=== PATIENT | female | born 1975 ===

== ENCOUNTER 2017-02-28 10:34 | Observation (INO) | payer OTHER ==
--- NOTE | 2017-02-28 11:48 | ED PDOC ---
Arrival/HPI <Imani Niño - Last Filed: 02/28/17 14:06> <CarinaJasper - Last Filed: 02/28/17 14:10> - General Chief Complaint: Back Pain Time Seen by Provider: 02/28/17 11:20 - History of Present Illness Narrative History of Present Illness (Text): 02/28/17 11:38 41 y/o F w/ PMHx of HTN, asthma, depression and lumbar herniated disk, presents to the ED c/o numbness and tingling in L hand and arm. Pt has had numbness in digits 1-3 x3mons but L arm weakness, numbness, and tingling since Sunday. Pt also reports decreased metal miner strength. Pt has no Hx of cervical injury or pain in cervical spine. Pt states numbness/tingling is positional and resolves w/ movement of arm. Pt denies pain in neck and arm, NAVARRO, dizziness, lightheadedness , weakness in R arm or LE. Pt admits to smoking crack cocaine w/ last use last week. Pt's last EtOH use was 1-2yrs ago. (Imani Niño) Past Medical History - Provider Review Nursing Documentation Reviewed: Yes - Cardiac Hx Cardiac Disorders: Yes Hx Hypertension: Yes - Pulmonary Hx Respiratory Disorders: Yes Hx Asthma: Yes - Neurological Hx Neurological Disorder: No - HEENT Hx HEENT Disorder: No - Renal Hx Renal Disorder: No - Endocrine/Metabolic Hx Endocrine Disorders: No - Hematological/Oncological Hx Blood Disorders: No - Integumentary Hx Dermatological Disorder: No - Musculoskeletal/Rheumatological Hx Musculoskeletal Disorders: Yes Hx Back Pain: Yes Hx Herniated Disk: Yes - Gastrointestinal Hx Gastrointestinal Disorders: No - Genitourinary/Gynecological Hx Genitourinary Disorders: No - Psychiatric Hx Psychophysiologic Disorder: Yes Hx Depression: Yes Hx Substance Use: No - Surgical History Hx Cholecystectomy: Yes Hx Orthopedic Surgery: Yes <Imani Niño - Last Filed: 02/28/17 14:06> Family/Social History - Physician Review Nursing Documentation Reviewed: Yes Family/Social History: No Known Family HX Smoking Status: Heavy Smoker > 10 Cigarettes Daily Hx Alcohol Use: No Hx Substance Use: No <Imani Niño - Last Filed: 02/28/17 14:06> Allergies/Home Meds <Imani Niño - Last Filed: 02/28/17 14:06> <Jasper Lim - Last Filed: 02/28/17 14:10> Allergies/Adverse Reactions: Allergies No Known Allergies Allergy (Verified 02/28/17 10:36) Home Medications: Home Meds Medication Instructions Recorded Confirmed No Known Home Med 02/28/17 02/28/17 Review of Systems - Physician Review All systems were reviewed & negative as marked: Yes - Review of Systems Constitutional: absent: Fevers Eyes: absent: Vision Changes <Imani Niño - Last Filed: 02/28/17 14:06> Physical Exam Vital Signs Reviewed: Yes Temperature: Afebrile Blood Pressure: Hypertensive Pulse: Regular Respiratory Rate: Normal Appearance: Positive for: Well-Appearing, Comfortable Pain Distress: Mild Mental Status: Positive for: Alert and Oriented X 3 - Systems Exam Head: Present: Atraumatic, Normocephalic Mouth: Present: Moist Mucous Membranes Neck: Present: Normal Range of Motion Respiratory/Chest: Present: Clear to Auscultation, Good Air Exchange. No: Respiratory Distress, Accessory Muscle Use Cardiovascular: Present: Regular Rate and Rhythm, Normal S1, S2. No: Murmurs Upper Extremity: Present: Other (see narrative exam). No: Cyanosis, Edema Lower Extremity: No: Edema Neurological: Present: GCS=15, Speech Normal Skin: Present: Warm, Dry, Normal Color, Other (multiple tattoos) Psychiatric: Present: Alert, Oriented x 3 <Imani Niño - Last Filed: 02/28/17 14:06> <Jasper Lim - Last Filed: 02/28/17 14:10> - Physical Exam Narrative Physical Exam (Text): 02/28/17 11:50 L metal miner strength 4/5; R metal miner strength 5/5 5/5 BL UE Flexon/extension Unable to elicit DTRs Tingling reproduced w/ neck extension and compression (Imani Niño) Vital Signs Temp Pulse Resp BP Pulse Ox 02/28/17 13:49 79 18 145/89 97 02/28/17 12:02 86 18 148/96 H 98 02/28/17 10:36 98.6 F 99 H 16 150/101 H 97 Medical Decision Making - EKG Interpretation Interpreted by ED Physician: Yes Type: 12 lead EKG <Imani Niño - Last Filed: 02/28/17 14:06> <Jasper Lim - Last Filed: 02/28/17 14:10> ED Course and Treatment: 02/28/17 11:52 41 y/o F w/ LUE numbness, tingling, weakness - labs - head CT - EKG - CXR - reassess and dispo (Imani Niño) A 41 year old female with left upper ext numbness and tingling for nearly 2 months but noting LUE weakness x 2 days. In agreement with resident note, which includes further HPI details. Patient was seen and evaluated with resident , came up with plan and treatment together. EKG shows NSR at 72 BPM with normal intervals, normal axis, poor R wave progression, no ST/T changes. Interpreted by me. 02/28/17 14:00 Patient with noted history; LUE with weaker metal miner. Symptoms x 2 days so is not a tpa candidate. She has risk factors of cocaine use, Hypertension, smoker, and apparent hyperlipidemia. Will obs and workup further for possible central / stroke etiology. (Jasper Lim) - Lab Interpretations Lab Results: 02/28/17 12:00 02/28/17 12:00 Lab Results 02/28/17 12:50: Blood Type Confirm A POSITIVE 02/28/17 12:00: Urine Opiates Screen Negative, Urine Methadone Screen Negative, Ur Barbiturates Screen Negative, Ur Phencyclidine Scrn Negative, Ur Amphetamines Screen Negative, U Benzodiazepines Scrn Negative, U Oth Cocaine Metabols Positive H, U Cannabinoids Screen Negative 02/28/17 12:00: Blood Type A POSITIVE, Antibody Screen Negative, BBK History Checked No verified bt 02/28/17 12:00: Sodium 139, Potassium 3.7, Chloride 102, Carbon Dioxide 29, Anion Gap 12, BUN 19, Creatinine 1.0, Est GFR ( Amer) > 60, Est GFR (Non- Af Amer) > 60, Random Glucose 90, Calcium 9.5, Magnesium 2.0, Total Bilirubin 0.4, AST 26, ALT 28, Alkaline Phosphatase 64, Lactate Dehydrogenase 300 L, Total Creatine Kinase 49, Troponin I < 0.01, Total Protein 7.7, Albumin 4.2, Globulin 3.5, Albumin/Globulin Ratio 1.2, Triglycerides 72, Cholesterol 217 H, LDL Cholesterol Direct 149 H, HDL Cholesterol 55, Lipase 46 02/28/17 12:00: PT 10.9, INR 1.01, APTT 25.7 02/28/17 12:00: WBC 8.6, RBC 4.50, Hgb 14.4, Hct 41.8, MCV 92.9, MCH 32.0, MCHC 34.4, RDW 13.3, Plt Count 350, MPV 9.2, Gran % 64.7, Lymph % (Auto) 24.7, Mclean % (Auto) 7.7 H, Eos % (Auto) 2.4, Baso % (Auto) 0.5, Gran # 5.57, Lymph # 2.1, Mclean # 0.7 H, Eos # 0.2, Baso # 0.04 - RAD Interpretation Radiology Orders: 02/28/17 11:43 HEAD W/O CONTRAST [CT] Stat CHEST TWO VIEWS (PA/LAT) [RAD] Stat - EKG Interpretation EKG Interpretation (Text): 02/28/17 12:03 NSR, rate 72, no ST changes (Imani Niño) - Medication Orders Current Medication Orders: Discontinued Medications Aspirin (Aspirin Chewable) 324 mg PO STAT STA Stop: 02/28/17 13:56 NIHSS Scale ([place]) Time Performed: 11:20 - How Severe is the Stoke Baseline Level of Consciousness: 0=Alert LOC to Questions: 0=Both comments correct LOC to commands: 0=Obeys both correctly Best Gaze: 0=Normal Visual: 0=No visual loss Facial: 0=Normal Motor Arm - Left: 0=No drift Motor Arm - Right: 0=No drift Motor Leg - Left: 0=No drift Motor Leg - Right: 0=No drift Limb Ataxia: 0=Absent Sensory: 0=Normal Best Language: 0=No aphasia Dysarthia: 0=Normal articulation Extinction & Inattention (Neglect): 0=Normal, no object Score: 0 Risk Level: No Stroke Risk <Jasper Lim - Last Filed: 02/28/17 14:10> <Imani Niño - Last Filed: 02/28/17 14:06> - PA / DAMPENER / Resident Statement / has reviewed & agrees with the documentation as recorded. / has examined the patient and agrees with the treatment plan. - Scribe Statement The provider has reviewed the documentation as recorded by the Scribe <Jasper Lim - Last Filed: 02/28/17 14:10> - Scribe Statement Sheela Hernandez Provider Scribe Attestation: All medical record entries made by the Scribe were at my direction and personally dictated by me. I have reviewed the chart and agree that the record accurately reflects my personal performance of the history, physical exam, medical decision making, and the department course for this patient. I have also personally directed, reviewed, and agree with the discharge instructions and disposition. (Jasper Lim) Disposition/Present on Arrival - Present on Arrival Any Indicators Present on Arrival: No History of DVT/PE: No History of Uncontrolled Diabetes: No Urinary Catheter: No History of Decub. Ulcer: No History Surgical Site Infection Following: None - Disposition Have Diagnosis and Disposition been Completed?: Yes Patient Plan: Observation <Imani Niño - Last Filed: 02/28/17 14:06> - Present on Arrival Any Indicators Present on Arrival: No - Disposition Have Diagnosis and Disposition been Completed?: Yes Disposition Time: 13:50 Patient Plan: Observation <Jasper Lim - Last Filed: 02/28/17 14:10> - Disposition Diagnosis: Left arm weakness Disposition: HOSPITALIZED Patient Problems: Current Active Problems Problem Status Onset Left arm weakness Acute Condition: FAIR Referrals: Hai Astudillo DO [Primary Care Provider] - Follow up with primary
[2017-02-28 12:21] LABS: ADD MANUAL DIFF? NO
[2017-02-28 12:32] LABS: BASO # 0.04 K/mm3 (0.0-2.0); BASO % 0.5 % (0.0-3.0); EOS # 0.2 (0.0-0.7); EOS % 2.4 % (1.5-5.0); GRAN # 5.57 (1.4-6.5); GRAN % 64.7 % (50.0-68.0); HEMATOCRIT 41.8 % (36.0-48.0); LYMPH # 2.1 (1.2-3.4); LYMPH % 24.7 % (22.0-35.0); MEAN CELL VOLUME 92.9 fL (80.0-105.0); MEAN CORPUSCULAR HGB CONC 34.4 g/dl (31.0-37.0); MEAN PLATELET VOLUME 9.2 fl (7.0-11.0); MONO # 0.7 (0.1-0.6); MONO % 7.7 % (1.0-6.0); PLATELET COUNT 350 10^3/uL (120.0-450.0); RED CELL DISTRIBUTION WIDTH 13.3 % (11.5-14.5); WHITE BLOOD COUNT 8.6 10^3/ul (4.5-11.0)
[2017-02-28 12:40] LABS: ALB/GLOB RATIO 1.2 (1.1-1.8); ALKALINE PHOSPHATASE 64 U/L (38-133); ALT/SGPT 28 U/L (7-56); AST/SGOT 26 U/L (15-39); BILIRUBIN,TOTAL 0.4 mg/dL (0.2-1.3); BLOOD UREA NITROGEN 19 mg/dL (7-21); CALCIUM 9.5 mg/dL (8.4-10.5); CARBON DIOXIDE 29 mmol/L (21-33); CHLORIDE 102 mmol/L (98-107); CHOLESTEROL 217 mg/dL (130-200); GFR AFRICAN-AMERICAN > 60; GLUCOSE,RANDOM 90 mg/dL (70-110); LIPASE 46 U/L (23-300); POTASSIUM 3.7 mmol/L (3.6-5.0); SODIUM 139 mmol/L (132-148); TOTAL PROTEIN 7.7 g/dL (5.8-8.3)
[2017-02-28 12:42] LABS: INR 1.01 (0.93-1.08); PARTIAL THROMBOPLASTIN TIME 25.7 Seconds (23.7-30.8)
[2017-02-28 12:55] LABS: TROPONIN I < 0.01 ng/mL
--- NOTE | 2017-02-28 13:42 | CT ---
PROCEDURE: CT HEAD WITHOUT CONTRAST. HISTORY: L arm weakness and parasthesias COMPARISON: None available. TECHNIQUE: Axial computed tomography images were obtained through the head/brain without intravenous contrast. There was a small amount of motion artifact This CT exam was performed using one or more of the following dose reduction techniques: Automated exposure control, adjustment of the mA and/or kV according to patient size, and/or use of iterative reconstruction technique. FINDINGS: HEMORRHAGE: No intracranial hemorrhage. BRAIN: No mass effect or edema. No atrophy or chronic microvascular ischemic changes. VENTRICLES: Unremarkable. No hydrocephalus. CALVARIUM: Unremarkable. PARANASAL SINUSES: Unremarkable as visualized. No significant inflammatory changes. MASTOID AIR CELLS: Unremarkable as visualized. No inflammatory changes. OTHER FINDINGS: None. IMPRESSION: No acute findings
--- NOTE | 2017-02-28 14:28 | RAD ---
HISTORY: L arm tingling and weakness COMPARISON: No prior. TECHNIQUE: Chest PA and lateral FINDINGS: LUNGS: No active pulmonary disease. PLEURA: No significant pleural effusion identified. No pneumothorax apparent. CARDIOVASCULAR: Normal. OSSEOUS STRUCTURES: No significant abnormalities. VISUALIZED UPPER ABDOMEN: Normal. OTHER FINDINGS: None. IMPRESSION: No active disease.
--- NOTE | 2017-02-28 16:10 | CP.PCM.HP ---
<Eduin Berg - Last Filed: 02/28/17 16:12> History of Present Illness - History of Present Illness History of Present Illness: This is a 41 yo female with past medical hx DM and HTN presenting with cc left finger numbness/tingling. Pt has numbness and tingling in the first 3 fingers in left hand. It has been going on for a couple of months but she is only seeking help now. For the past few days she has also had some left arm weakness which also feels like her arm is falling asleep. She also notices with her left arm that she has had some trouble picking up objects. She does report headache that is located in occipital region that will radiate into neck. She is normally right handed. She does have some chronic back pain. She does not take any meds for the back pain. She does not report any weakness in legs or facial droop or slurred speech. PMH: DM, HTN PSH: right knee sx, ectopic preg d/c, cholecystectomy Allergies: NKDA FH: DM in family Social hx: 1 ppd smoker. Former heavy drinker. Active cocaine user, last use 3 days ago. Lives by herself. Present on Admission - Present on Admission Any Indicators Present on Admission: No History of DVT/PE: No History of Uncontrolled Diabetes: No Urinary Catheter: No Decubitus Ulcer Present: No Review of Systems - Review of Systems All systems: reviewed and no additional remarkable complaints except Review of Systems: Negative except as per HPI. Past Patient History - Infectious Disease Hx of Infectious Diseases: None - Tetanus Immunizations Tetanus Immunization: Unknown - Past Medical History & Family History Past Medical History?: Yes Past Family History: Reviewed and not pertinent - Past Social History Smoking Status: Heavy Smoker > 10 Cigarettes Daily Chewing Tobacco Use: No Cigar Use: No Alcohol: None Drugs: Cocaine Home Situation {Lives}: Alone Domestic Violence: Negative - CARDIAC Hx Cardiac Disorders: Yes Hx Hypertension: Yes - PULMONARY Hx Respiratory Disorders: Yes Hx Asthma: Yes - NEUROLOGICAL Hx Neurological Disorder: No - HEENT Hx HEENT Problems: No - RENAL Hx Chronic Kidney Disease: No - ENDOCRINE/METABOLIC Hx Endocrine Disorders: No - HEMATOLOGICAL/ONCOLOGICAL Hx Blood Disorders: No - INTEGUMENTARY Hx Dermatological Problems: No - MUSCULOSKELETAL/RHEUMATOLOGICAL Hx Musculoskeletal Disorders: Yes Hx Back Pain: Yes Hx Herniated Disk: Yes - GASTROINTESTINAL Hx Gastrointestinal Disorders: No - GENITOURINARY/GYNECOLOGICAL Hx Genitourinary Disorders: No - PSYCHIATRIC Hx Psychophysiologic Disorder: Yes Hx Depression: Yes Hx Substance Use: No - SURGICAL HISTORY Hx Cholecystectomy: Yes Hx Orthopedic Surgery: Yes Meds Allergies/Adverse Reactions: Allergies Allergy/AdvReac Type Severity Reaction Status Date / Time No Known Allergies Allergy Verified 02/28/17 10:36 Physical Exam - Constitutional Appears: Non-toxic, No Acute Distress - Head Exam Head Exam: ATRAUMATIC, NORMAL INSPECTION, NORMOCEPHALIC - Eye Exam Eye Exam: EOMI - ENT Exam ENT Exam: Mucous Membranes Moist - Neck Exam Neck exam: Positive for: Full Rom, Normal Inspection - Respiratory Exam Respiratory Exam: NORMAL BREATHING PATTERN - Cardiovascular Exam Cardiovascular Exam: +S1, +S2 - GI/Abdominal Exam GI & Abdominal Exam: Normal Bowel Sounds, Soft. absent: Tenderness - Extremities Exam Extremities exam: Positive for: full ROM, normal inspection - Back Exam Back exam: NORMAL INSPECTION - Neurological Exam Neurological exam: Alert, CN II-XII Intact, Oriented x3 Additional comments: Muscles strength 4/5 left upper and lower, 5/5 right upper and lower, sensation reduced left upper ext to light touch - Psychiatric Exam Psychiatric exam: Normal Affect, Normal Mood - Skin Skin Exam: Dry, Intact, Normal Color, Warm Results - Vital Signs Recent Vital Signs: Last Vital Signs Temp 98.6 F 02/28/17 10:36 Pulse 73 02/28/17 14:52 Resp 16 02/28/17 14:52 BP 136/88 02/28/17 14:52 Pulse Ox 98 02/28/17 14:52 - Labs Result Diagrams: 02/28/17 12:00 02/28/17 12:00 Assessment & Plan - Assessment and Plan (Free Text) Assessment: This is a 41 yo female with past medical hx of HTN and DM presenting with left arm weakness/numbness 1. Left arm weakness/numbness -r/o stroke -head ct -mri brain pending -neuro consult. recs appreciated. -asa 81 daily -lipitor 40 hs -ekg -carotid dopplers -echo -neuro checks q 4 -pt/ot -swallow eval pending -telemetry -obs 2. hx of DM -HGB a1c -lipid panel 3. hx of HLD -lipitor 40 hs 4. hx of HTN -continue to monitor 5. GI/DVT ppx -protonix 40 -scds discussed with Dr. Grewal <Broderick Grewal - Last Filed: 03/01/17 08:04> Results - Vital Signs Recent Vital Signs: Last Vital Signs Temp 98.6 F 02/28/17 22:14 Pulse 81 02/28/17 22:14 Resp 16 02/28/17 22:14 BP 131/82 02/28/17 22:14 Pulse Ox 98 02/28/17 17:15 - Labs Result Diagrams: 02/28/17 12:00 02/28/17 12:00 Attending/Attestation - Attestation I have personally seen and examined this patient.: Yes I have fully participated in the care of the patient.: Yes I have reviewed all pertinent clinical information: Yes Notes (Text): 02/28/17 41 year old female with past medical history of hypertension and substance abuse (cocaine) who presents with complaint of left arm numbness and weakness x [address] head was negative. MRI brain, carotid dopplers and echocardiogram is ordered. Neurology evaluation is requested. She is started on aspirin and lipitor. She is noncompliant with home medication for hypertension. Will monitor. Utox was positive for cocaine. She was counselled on risks of continued substance abuse. She is complaining of urinary frequency and burning, concerned for diabetes. However A1c is 5.6. UA is ordered. Broderick Grewal MD Hospitalist.
--- NOTE | 2017-02-28 20:06 | US ---
PROCEDURE: Bilateral carotid artery duplex ultrasound HISTORY: Carotid stenosis CVA PHYSICIAN(S): Rhett Mcallister MD. TECHNIQUE: Duplex sonography and color-flow Doppler were used to evaluate the carotid bifurcations and limited segments of the vertebral arteries bilaterally. FINDINGS: There is mild smooth heterogeneous plaque noted at the carotid bifurcations bilaterally. The peak systolic velocity in the proximal right internal carotid artery is 75 cm/sec. This corresponds to a 20 to 39% proximal right ICA stenosis. Normal systolic velocities are noted in the proximal right external carotid artery. There is antegrade flow in the right vertebral artery. The peak systolic velocity in the proximal left internal carotid artery is 71 cm/sec. This corresponds to a 20 to 39% proximal left ICA stenosis. Normal systolic velocities are noted in the proximal left external carotid artery. There is antegrade flow in the left vertebral artery. IMPRESSION: 1. Bilateral 20-39% proximal ICA stenoses. 2. Antegrade flow in both vertebral arteries.
[2017-02-28 22:21] VITALS: BMI 23.3
[2017-02-28] MEDS ORDERED: Pneumococcal 23-Valent Vaccine IM ONE (22:21)
[2017-03-01] MEDS ORDERED: Pantoprazole 40 mg EC Tab PO SCH (07:30)
[2017-03-01 08:11] LABS: ADD MANUAL DIFF? NO
[2017-03-01 08:29] LABS: ALB/GLOB RATIO 1.2 (1.1-1.8); ALKALINE PHOSPHATASE 59 U/L (38-133); ALT/SGPT 27 U/L (7-56); AST/SGOT 18 U/L (15-39); BILIRUBIN,TOTAL 0.3 mg/dL (0.2-1.3); BLOOD UREA NITROGEN 21 mg/dL (7-21); CALCIUM 9.2 mg/dL (8.4-10.5); CARBON DIOXIDE 29 mmol/L (21-33); CHLORIDE 105 mmol/L (95-110); GFR AFRICAN-AMERICAN > 60; GLUCOSE,RANDOM 80 mg/dL (70-110); MAGNESIUM 1.9 mg/dL (1.7-2.2); PHOSPHOROUS 4.3 mg/dL (2.5-4.5); SODIUM 139 mmol/L (132-148); TOTAL PROTEIN 6.7 g/dL (5.8-8.3)
[2017-03-01 08:32] LABS: BASO # 0.06 K/mm3 (0.0-2.0); BASO % 0.7 % (0.0-3.0); EOS # 0.4 (0.0-0.7); EOS % 4.5 % (1.5-5.0); GRAN # 4.44 (1.4-6.5); GRAN % 49.5 % (50.0-68.0); LYMPH # 3.4 (1.2-3.4); LYMPH % 37.9 % (22.0-35.0); MEAN CORPUSCULAR HEMOGLOBIN 31.7 pg (25.0-35.0); MEAN CORPUSCULAR HGB CONC 34.1 g/dl (31.0-37.0); MEAN PLATELET VOLUME 9.3 fl (7.0-11.0); MONO # 0.7 (0.1-0.6); MONO % 7.4 % (1.0-6.0); PLATELET COUNT 328 10^3/uL (120.0-450.0); RED CELL DISTRIBUTION WIDTH 13.2 % (11.5-14.5)
[2017-03-01 08:54] VITALS: BP 131/88; PULSE 65; RESP 20; TEMP 98; O2SAT 100
--- NOTE | 2017-03-01 09:19 | MRI ---
PROCEDURE: MRI BRAIN WITHOUT CONTRAST HISTORY: r/o stroke COMPARISON: Noncontrast head CT from 02/28/2017 TECHNIQUE: Multiplanar, multisequence MR images of the brain were obtained without intravenous contrast enhancement. FINDINGS: HEMORRHAGE: None DWI: No evidence of an acute or early subacute infarction. BRAIN PARENCHYMA: There are few T2/FLAIR hyperintense foci in the subcortical supratentorial white matter. Nava-white matter differentiation is preserved. There is no mass, mass effect or abnormal extra-axial fluid collection. There is no territorial infarction. Low-lying cerebellar tonsils. VENTRICLES: The ventricles are normal in size, shape and configuration. CRANIUM: There is normal bone marrow signal pattern. ORBITS: Grossly unremarkable. PARANASAL SINUSES/MASTOIDS: There is mild mucosal thickening in the paranasal sinuses. VASCULAR SYSTEM: There are normal signal voids in the larger intracranial arteries. OTHER FINDINGS: None. IMPRESSION: No acute intracranial abnormality. Specifically, no evidence of acute infarction. Mild subcortical supratentorial white matter changes are strictly nonspecific and could be related to migraine headache effect, gliosis or early chronic microangiopathic changes. Low-lying cerebellar tonsils. A preliminary report was provided by [employer].
--- NOTE | 2017-03-01 10:21 | CARD ---
APPROVED REPORT EKG Measurement Heart [id number] <Conclusion> Normal sinus rhythm PRWP Slight ST elevations 3,F
[2017-03-01 11:34] LABS: URINE BILIRUBIN NEGATIVE (NEGATIVE); URINE BLOOD SMALL (NEGATIVE); URINE GLUCOSE (UA) NEGATIVE (NEGATIVE); URINE KETONE NEGATIVE (NEGATIVE); URINE LEUKOCYTE ESTERASE NEGATIVE Leu/uL (NEGATIVE); URINE PROTEIN TRACE mg/dL (<30 mg/dL)
[2017-03-01 11:35] LABS: URINE APPEARANCE CLEAR (CLEAR); URINE COLOR YELLOW (YELLOW)
[2017-03-01 11:44] LABS: URINE WBC 0 - 2 /hpf (0-6)
--- NOTE | 2017-03-01 13:41 | CP.PCM.PN ---
<Eduin Berg - Last Filed: 03/01/17 13:41> Subjective - Date & Time of Evaluation Date of Evaluation: 03/01/17 Time of Evaluation: 13:40 - Subjective Subjective: Medicine progress note. Attending: Dr. rGewal Pt seen and examined at bedside. No acute distress. Echo pending, mri negative. Neuro workup in progress. No fevers, chills, vomiting, diarrhea. Objective - Vital Signs/Intake and Output Vital Signs (last 24 hours): Temp Pulse Resp BP Pulse Ox 98 F 65 20 131/88 100 03/01/17 08:53 03/01/17 08:53 03/01/17 08:53 03/01/17 08:53 03/01/17 08:53 Intake and Output: 03/01/17 03/01/17 06:59 18:59 Intake Total 840 Balance 840 - Medications Medications: Current Medications Aspirin (Aspirin Chewable) 81 mg PO DAILY [facility] Last Admin: 03/01/17 10:12 Dose: 81 mg Atorvastatin Calcium (Lipitor) 40 mg PO DAILY [facility] Last Admin: 03/01/17 10:12 Dose: 40 mg Ibuprofen (Motrin Tab) 600 mg PO Q6H PRN PRN Reason: Pain, moderate (4-7) Last Admin: 02/28/17 20:34 Dose: 600 mg Pantoprazole Sodium (Protonix Ec Tab) 40 mg PO ACB [facility] Last Admin: 03/01/17 08:35 Dose: 40 mg - Labs Labs: 03/01/17 07:30 03/01/17 07:30 PT 10.9 Seconds (9.9-11.8) 02/28/17 12:00 INR 1.01 (0.93-1.08) 02/28/17 12:00 APTT 25.7 Seconds (23.7-30.8) 02/28/17 12:00 - Constitutional Appears: Non-toxic, No Acute Distress - Head Exam Head Exam: ATRAUMATIC, NORMAL INSPECTION, NORMOCEPHALIC - Eye Exam Eye Exam: EOMI - ENT Exam ENT Exam: Mucous Membranes Moist - Neck Exam Neck Exam: Full ROM, Normal Inspection - Respiratory Exam Respiratory Exam: NORMAL BREATHING PATTERN. absent: Respiratory Distress - Cardiovascular Exam Cardiovascular Exam: +S1, +S2 - GI/Abdominal Exam GI & Abdominal Exam: Soft, Normal Bowel Sounds. absent: Tenderness - Extremities Exam Extremities Exam: Full ROM. absent: Normal Inspection - Neurological Exam Neurological Exam: Alert, Awake, CN II-XII Intact, Normal Gait, Oriented x3 Neuro motor strength exam: Left Upper Extremity: 4, Right Upper Extremity: 5, Left Lower Extremity: 4, Right Lower Extremity: 5 - Psychiatric Exam Psychiatric exam: Normal Affect, Normal Mood - Skin Skin Exam: Dry, Intact, Normal Color, Warm Assessment and Plan - Assessment and Plan (Free Text) Assessment: This is a 41 yo female with past medical hx of HTN and DM presenting with left arm weakness/numbness 1. Left arm weakness/numbness -r/o stroke -head ct negative -mri brain negative for acute changes -neuro consult. recs appreciated. -asa 81 daily -lipitor 40 hs -ekg -carotid dopplers 20-39 percent proximal ica stenosis -echo pending -neuro checks q 4 -pt/ot -telemetry -obs -a1c 5.6 3. hx of HLD -lipitor 40 hs 4. hx of HTN -continue to monitor 5. GI/DVT ppx -protonix 40 -scds discussed with Dr. Grewal <Broderick Grewal - Last Filed: 03/01/17 16:59> Objective - Vital Signs/Intake and Output Vital Signs (last 24 hours): Temp Pulse Resp BP Pulse Ox 98 F 65 20 131/88 100 03/01/17 08:53 03/01/17 08:53 03/01/17 08:53 03/01/17 08:53 03/01/17 08:53 Intake and Output: 03/01/17 03/01/17 06:59 18:59 Intake Total 840 Balance 840 - Labs Labs: 03/01/17 07:30 03/01/17 07:30 PT 10.9 Seconds (9.9-11.8) 02/28/17 12:00 INR 1.01 (0.93-1.08) 02/28/17 12:00 APTT 25.7 Seconds (23.7-30.8) 02/28/17 12:00 Attending/Attestation - Attestation I have personally seen and examined this patient.: Yes I have fully participated in the care of the patient.: Yes I have reviewed all pertinent clinical information, including history, physical exam and plan: Yes Notes (Text): 03/01/17 16:57 41 year old female with past medical history of hypertension and substance abuse (cocaine) who presented with complaint of left arm numbness and weakness x [address] head and MRI brain were negative. Carotid dopplers were reviewed as above. Echocardiogram was done with report pending. She was also pending neurology evaluation. She is on aspirin and lipitor. She admits to noncompliant with home medication for hypertension. Will monitor. Utox was positive for cocaine. She was counselled on risks of continued substance abuse. She was complaining of urinary frequency and burning, concerned for diabetes. However A1c is 5.6. UA was also negative. Patient was still pending neurology evaluation, however patient has signed out AMA this afternoon. Broderick Grewal MD Hospitalist.
--- NOTE | 2017-03-01 15:49 | CP.PCM.DIS ---
<Eduin Berg - Last Filed: 03/01/17 15:53> Provider - Provider Date of Admission: 02/28/17 13:59 Attending physician: Broderick Grewal MD Primary care physician: Hai Astudillo DO Consults: Neuro- Jaclyn Time Spent in preparation of Discharge (in minutes): 45 Hospital Course - Lab Results Lab Results: Most Recent Lab Values WBC 9.0 10^3/ul (4.5-11.0) 03/01/17 07:30 RBC 3.98 10^6/uL (3.5-6.1) 03/01/17 07:30 Hgb 12.6 gm/dL (12.0-16.0) 03/01/17 07:30 Hct 37.0 % (36.0-48.0) 03/01/17 07:30 MCV 93.0 fL (80.0-105.0) 03/01/17 07:30 MCH 31.7 pg (25.0-35.0) 03/01/17 07:30 MCHC 34.1 g/dl (31.0-37.0) 03/01/17 07:30 RDW 13.2 % (11.5-14.5) 03/01/17 07:30 Plt Count 328 10^3/uL (120.0-450.0) 03/01/17 07:30 MPV 9.3 fl (7.0-11.0) 03/01/17 07:30 Gran % 49.5 % (50.0-68.0) L 03/01/17 07:30 Lymph % (Auto) 37.9 % (22.0-35.0) H 03/01/17 07:30 [place] % (Auto) 7.4 % (1.0-6.0) H 03/01/17 07:30 Eos % (Auto) 4.5 % (1.5-5.0) 03/01/17 07:30 Baso % (Auto) 0.7 % (0.0-3.0) 03/01/17 07:30 Gran # 4.44 (1.4-6.5) 03/01/17 07:30 Lymph # 3.4 (1.2-3.4) 03/01/17 07:30 [place] # 0.7 (0.1-0.6) H 03/01/17 07:30 Eos # 0.4 (0.0-0.7) 03/01/17 07:30 Baso # 0.06 K/mm3 (0.0-2.0) 03/01/17 07:30 PT 10.9 Seconds (9.9-11.8) 02/28/17 12:00 INR 1.01 (0.93-1.08) 02/28/17 12:00 APTT 25.7 Seconds (23.7-30.8) 02/28/17 12:00 Sodium 139 mmol/L (132-148) 03/01/17 07:30 Potassium 4.0 mmol/L (3.6-5.0) 03/01/17 07:30 Chloride 105 mmol/L (95-110) 03/01/17 07:30 Carbon Dioxide 29 mmol/L (21-33) 03/01/17 07:30 Anion Gap 9 (10-20) L 03/01/17 07:30 BUN 21 mg/dL (7-21) 03/01/17 07:30 Creatinine 0.9 mg/dL (0.5-1.4) 03/01/17 07:30 Est GFR ( Amer) > 60 03/01/17 07:30 Est GFR (Non-Af Amer) > 60 03/01/17 07:30 Random Glucose 80 mg/dL (70-110) 03/01/17 07:30 Hemoglobin A1c 5.6 % (4.2-6.5) 02/28/17 12:00 Calcium 9.2 mg/dL (8.4-10.5) 03/01/17 07:30 Phosphorus 4.3 mg/dL (2.5-4.5) 03/01/17 07:30 Magnesium 1.9 mg/dL (1.7-2.2) 03/01/17 07:30 Total Bilirubin 0.3 mg/dL (0.2-1.3) 03/01/17 07:30 AST 18 U/L (15-39) 03/01/17 07:30 ALT 27 U/L (7-56) 03/01/17 07:30 Alkaline Phosphatase 59 U/L (38-133) 03/01/17 07:30 Lactate Dehydrogenase 300 U/L (333-699) L 02/28/17 12:00 Total Creatine Kinase 49 U/L (35-230) 02/28/17 12:00 Troponin I < 0.01 ng/mL 02/28/17 12:00 Total Protein 6.7 g/dL (5.8-8.3) 03/01/17 07:30 Albumin 3.7 g/dL (3.0-4.8) 03/01/17 07:30 Globulin 3.0 gm/dL 03/01/17 07:30 Albumin/Globulin Ratio 1.2 (1.1-1.8) 03/01/17 07:30 Triglycerides 72 mg/dL (35-160) 02/28/17 12:00 Cholesterol 217 mg/dL (130-200) H 02/28/17 12:00 LDL Cholesterol Direct 149 mg/dL (0-129) H 02/28/17 12:00 HDL Cholesterol 55 mg/dL (29-60) 02/28/17 12:00 Lipase 46 U/L (23-300) 02/28/17 12:00 Urine Color Yellow (YELLOW) 03/01/17 09:52 Urine Appearance Clear (CLEAR) 03/01/17 09:52 Urine pH 6.0 (4.7-8.0) 03/01/17 09:52 Ur Specific [place] >= 1.030 (1.005-1.035) 03/01/17 09:52 Urine Protein Trace mg/dL (<30 mg/dL) H 03/01/17 09:52 Urine Glucose (UA) Negative mg/dL (NEGATIVE) 03/01/17 09:52 Urine Ketones Negative mg/dL (NEGATIVE) 03/01/17 09:52 Urine Blood Small (NEGATIVE) H 03/01/17 09:52 Urine Nitrate Negative (NEGATIVE) 03/01/17 09:52 Urine Bilirubin Negative (NEGATIVE) 03/01/17 09:52 Urine Urobilinogen 1.0 E.U./dL (<1 E.U./dL) H 03/01/17 09:52 Ur Leukocyte Esterase Negative Araceli/uL (NEGATIVE) 03/01/17 09:52 Urine RBC 1 - 3 /hpf (0-2) 03/01/17 09:52 Urine WBC 0 - 2 /hpf (0-6) 03/01/17 09:52 Ur Epithelial Cells 4 - 5 /hpf (0-5) 03/01/17 09:52 Urine Other Mucus 03/01/17 09:52 Urine Opiates Screen Negative (NEGATIVE) 02/28/17 12:00 Urine Methadone Screen Negative (NEGATIVE) 02/28/17 12:00 Ur Barbiturates Screen Negative (NEGATIVE) 02/28/17 12:00 Ur Phencyclidine Scrn Negative (NEGATIVE) 02/28/17 12:00 Ur Amphetamines Screen Negative (NEGATIVE) 02/28/17 12:00 U Benzodiazepines Scrn Negative (NEGATIVE) 02/28/17 12:00 U Oth Cocaine Metabols Positive (NEGATIVE) H 02/28/17 12:00 U Cannabinoids Screen Negative (NEGATIVE) 02/28/17 12:00 Blood Type A POSITIVE 02/28/17 12:00 Blood Type Confirm A POSITIVE 02/28/17 12:50 Antibody Screen Negative 02/28/17 12:00 BBK History Checked No verified bt 02/28/17 12:00 - Hospital Course Hospital Course: Attending: Dr. Grewal Admit date- 02/28/17 Pt left ama on 03/01/17 Procedures- none HPI: see h/p Consults Neuro- Jaclyn Labs: see lab data Hospital course. This is a 41 yo female with past medical hx of HTN and cocaine abuse presenting with left arm weakness/numbness 1. Left arm weakness/numbness -r/o stroke -head ct negative -mri brain negative for acute changes -neuro consult. recs appreciated. -asa 81 daily -lipitor 40 hs -ekg NSR at 72 bpm -carotid dopplers 20-39 percent proximal ica stenosis -echo pending -neuro checks q 4 -pt/ot -telemetry -obs -a1c 5.6 2. cocaine abuse -pt advised to stop using cocaine -urine positive for cocaine 3. hx of HLD -lipitor 40 hs 4. hx of HTN -continue to monitor 5. GI/DVT ppx -protonix 40 daily -scds Pt left AMA on afternoon of 03/01/17. DC meds N/A DC instructions N/A - Date & Time of H&P Date of H&P: 02/28/17 Time of H&P: 16:08 Discharge Exam - Head Exam Head Exam: ATRAUMATIC, NORMAL INSPECTION, NORMOCEPHALIC Discharge Plan - Follow Up Plan Condition: FAIR Disposition: AGAINST MEDICAL ADVICE Referrals: Hai Astudillo DO [Primary Care Provider] - <Broderick Grewal - Last Filed: 03/02/17 18:30> Provider - Provider Date of Admission: 02/28/17 13:59 Attending physician: Broderick Grewal MD Primary care physician: Hai Astudillo DO Hospital Course - Lab Results Lab Results: Most Recent Lab Values WBC 9.0 10^3/ul (4.5-11.0) 03/01/17 07:30 RBC 3.98 10^6/uL (3.5-6.1) 03/01/17 07:30 Hgb 12.6 gm/dL (12.0-16.0) 03/01/17 07:30 Hct 37.0 % (36.0-48.0) 03/01/17 07:30 MCV 93.0 fL (80.0-105.0) 03/01/17 07:30 MCH 31.7 pg (25.0-35.0) 03/01/17 07:30 MCHC 34.1 g/dl (31.0-37.0) 03/01/17 07:30 RDW 13.2 % (11.5-14.5) 03/01/17 07:30 Plt Count 328 10^3/uL (120.0-450.0) 03/01/17 07:30 MPV 9.3 fl (7.0-11.0) 03/01/17 07:30 Gran % 49.5 % (50.0-68.0) L 03/01/17 07:30 Lymph % (Auto) 37.9 % (22.0-35.0) H 03/01/17 07:30 [place] % (Auto) 7.4 % (1.0-6.0) H 03/01/17 07:30 Eos % (Auto) 4.5 % (1.5-5.0) 03/01/17 07:30 Baso % (Auto) 0.7 % (0.0-3.0) 03/01/17 07:30 Gran # 4.44 (1.4-6.5) 03/01/17 07:30 Lymph # 3.4 (1.2-3.4) 03/01/17 07:30 [place] # 0.7 (0.1-0.6) H 03/01/17 07:30 Eos # 0.4 (0.0-0.7) 03/01/17 07:30 Baso # 0.06 K/mm3 (0.0-2.0) 03/01/17 07:30 PT 10.9 Seconds (9.9-11.8) 02/28/17 12:00 INR 1.01 (0.93-1.08) 02/28/17 12:00 APTT 25.7 Seconds (23.7-30.8) 02/28/17 12:00 Sodium 139 mmol/L (132-148) 03/01/17 07:30 Potassium 4.0 mmol/L (3.6-5.0) 03/01/17 07:30 Chloride 105 mmol/L (95-110) 03/01/17 07:30 Carbon Dioxide 29 mmol/L (21-33) 03/01/17 07:30 Anion Gap 9 (10-20) L 03/01/17 07:30 BUN 21 mg/dL (7-21) 03/01/17 07:30 Creatinine 0.9 mg/dL (0.5-1.4) 03/01/17 07:30 Est GFR ( Amer) > 60 03/01/17 07:30 Est GFR (Non-Af Amer) > 60 03/01/17 07:30 Random Glucose 80 mg/dL (70-110) 03/01/17 07:30 Hemoglobin A1c 5.6 % (4.2-6.5) 02/28/17 12:00 Calcium 9.2 mg/dL (8.4-10.5) 03/01/17 07:30 Phosphorus 4.3 mg/dL (2.5-4.5) 03/01/17 07:30 Magnesium 1.9 mg/dL (1.7-2.2) 03/01/17 07:30 Total Bilirubin 0.3 mg/dL (0.2-1.3) 03/01/17 07:30 AST 18 U/L (15-39) 03/01/17 07:30 ALT 27 U/L (7-56) 03/01/17 07:30 Alkaline Phosphatase 59 U/L (38-133) 03/01/17 07:30 Lactate Dehydrogenase 300 U/L (333-699) L 02/28/17 12:00 Total Creatine Kinase 49 U/L (35-230) 02/28/17 12:00 Troponin I < 0.01 ng/mL 02/28/17 12:00 Total Protein 6.7 g/dL (5.8-8.3) 03/01/17 07:30 Albumin 3.7 g/dL (3.0-4.8) 03/01/17 07:30 Globulin 3.0 gm/dL 03/01/17 07:30 Albumin/Globulin Ratio 1.2 (1.1-1.8) 03/01/17 07:30 Triglycerides 72 mg/dL (35-160) 02/28/17 12:00 Cholesterol 217 mg/dL (130-200) H 02/28/17 12:00 LDL Cholesterol Direct 149 mg/dL (0-129) H 02/28/17 12:00 HDL Cholesterol 55 mg/dL (29-60) 02/28/17 12:00 Lipase 46 U/L (23-300) 02/28/17 12:00 Urine Color Yellow (YELLOW) 03/01/17 09:52 Urine Appearance Clear (CLEAR) 03/01/17 09:52 Urine pH 6.0 (4.7-8.0) 03/01/17 09:52 Ur Specific [place] >= 1.030 (1.005-1.035) 03/01/17 09:52 Urine Protein Trace mg/dL (<30 mg/dL) H 03/01/17 09:52 Urine Glucose (UA) Negative mg/dL (NEGATIVE) 03/01/17 09:52 Urine Ketones Negative mg/dL (NEGATIVE) 03/01/17 09:52 Urine Blood Small (NEGATIVE) H 03/01/17 09:52 Urine Nitrate Negative (NEGATIVE) 03/01/17 09:52 Urine Bilirubin Negative (NEGATIVE) 03/01/17 09:52 Urine Urobilinogen 1.0 E.U./dL (<1 E.U./dL) H 03/01/17 09:52 Ur Leukocyte Esterase Negative Araceli/uL (NEGATIVE) 03/01/17 09:52 Urine RBC 1 - 3 /hpf (0-2) 03/01/17 09:52 Urine WBC 0 - 2 /hpf (0-6) 03/01/17 09:52 Ur Epithelial Cells 4 - 5 /hpf (0-5) 03/01/17 09:52 Urine Other Mucus 03/01/17 09:52 Urine Opiates Screen Negative (NEGATIVE) 02/28/17 12:00 Urine Methadone Screen Negative (NEGATIVE) 02/28/17 12:00 Ur Barbiturates Screen Negative (NEGATIVE) 02/28/17 12:00 Ur Phencyclidine Scrn Negative (NEGATIVE) 02/28/17 12:00 Ur Amphetamines Screen Negative (NEGATIVE) 02/28/17 12:00 U Benzodiazepines Scrn Negative (NEGATIVE) 02/28/17 12:00 U Oth Cocaine Metabols Positive (NEGATIVE) H 02/28/17 12:00 U Cannabinoids Screen Negative (NEGATIVE) 02/28/17 12:00 Blood Type A POSITIVE 02/28/17 12:00 Blood Type Confirm A POSITIVE 02/28/17 12:50 Antibody Screen Negative 02/28/17 12:00 BBK History Checked No verified bt 02/28/17 12:00 Attending/Attestation - Attestation I have personally seen and examined this patient.: Yes I have fully participated in the care of the patient.: Yes I have reviewed all pertinent clinical information, including history, physical exam and plan: Yes Notes (Text): 03/01/17 41 year old female with past medical history of hypertension and substance abuse (cocaine) who presented with complaint of left arm numbness and weakness x [address] head and MRI brain were negative. Carotid dopplers were reviewed as above. Echocardiogram was done with report pending. She was also pending neurology evaluation. She is on aspirin and lipitor. She admits to noncompliant with home medication for hypertension. Will monitor. Utox was positive for cocaine. She was counselled on risks of continued substance abuse. She was complaining of urinary frequency and burning, concerned for diabetes. However A1c is 5.6. UA was also negative. Patient was still pending neurology evaluation, however patient has signed out AMA this afternoon. Broderick Grewal MD Hospitalist.
--- NOTE | 2017-03-02 09:33 | CARD ---
APPROVED REPORT EXAM: Two-dimensional and M-mode echocardiogram with Doppler and color Doppler. Other Information Quality : GoodRhythm : INDICATION r/o Stroke 2D DIMENSIONS Left Atrium (2D)3.3 (1.6-4.0cm)IVSd1.3 (0.7-1.1cm) Aortic Root (2D)3.2 (2.0-3.7cm)LVDd3.9 (3.9-5.9cm) PWd1.3 (0.7-1.1cm)LVDs2.3 (2.5-4.0cm) FS (%) 42.3 %LVEF (%)74.0 (>50%) M-Mode DIMENSIONS Aortic Cusp Exc.2.10 (1.5-2.0cm) Aortic Valve AoV Peak Ppnxbmdm072.0cm/s Mitral Valve MV E Onpwnalc77.9cm/sMV A Cdckxhqw03.3cm/sE/A ratio1.6 TDI Lateral E' Peak V9.75cm/sMedial E' Peak V7.80cm/sE/Lateral E'8.5 E/Medial E'10.6 Pulmonary Valve PV Peak Hckjicid53.1cm/sPV Peak Grad.2mmHg Tricuspid Valve TR Peak [id number]/sRAP [id number] Peak Gr.13mmHg [id number] LEFT VENTRICLE The left ventricle is normal size. There is moderate concentric left ventricular hypertrophy. The left ventricular function is normal. The left ventricular ejection fraction is within the normal range. There is normal LV segmental wall motion. RIGHT VENTRICLE The right ventricle is normal size. ATRIA The left atrium size is normal. The right atrium size is normal. The interatrial septum is intact with no evidence for an atrial septal defect. AORTIC VALVE The aortic valve is normal in structure. MITRAL VALVE The mitral valve is normal in structure. Mitral regurgitation is trace. TRICUSPID VALVE The tricuspid valve is normal in structure. There is trace tricuspid regurgitation. [place] The aortic root is normal in size. PERICARDIAL EFFUSION There is no pericardial effusion. <Conclusion> The left ventricle is normal size. There is moderate concentric left ventricular hypertrophy. The left ventricular function is normal.
== END 2017-03-01 15:26 | disposition left against medical advice (07) ==
LOC: ED 10:34 → ERH 13:59 → 3RSO 18:40
PROVIDERS: ADMIT Hospitalist; ATTEND Internal Medicine
DX: R53.1 Weakness (principal); I10 Essential (primary) hypertension; I65.23 Occlusion and stenosis of bilateral carotid arteries; M51.26 Other intervertebral disc displacement, lumbar region; E11.9 Type 2 diabetes mellitus without complications; G89.29 Other chronic pain; J45.909 Unspecified asthma, uncomplicated; R20.0 Anesthesia of skin; F32.9 Major depressive disorder, single episode, unspecified; F17.210 Nicotine dependence, cigarettes, uncomplicated; E78.5 Hyperlipidemia, unspecified; Z91.14 Patient's other noncompliance with medication regimen; F14.10 Cocaine abuse, uncomplicated; Z90.49 Acquired absence of other specified parts of digestive tract; Z83.3 Family history of diabetes mellitus
CPT/HCPCS: 36415; 70450; 70551; 71020; 80053; 80061; 80324; 80345; 80346; 80349; 80353; 80358; 80361; 81001; 82550; 83036; 83615; 83690; 83735; 83992; 84100; 84484; 85025; 85610; 85730; 86850; 86900; 93005; 93306; 93880; 99284; G0378